=== PATIENT | female | born 1995 | race African-American/Black ===

== ENCOUNTER 2017-03-17 06:23 | Inpatient (IN) ==
[2017-03-17] MEDS ORDERED: CITRIC ACID/SODIUM CITRATE 30 ML UDCUP PO ONE (07:07)
[2017-03-17] MEDS ORDERED: FAMOTIDINE 20 MG/2 ML VIAL IV ONE (07:07)
[2017-03-17] MEDS ORDERED: ceFAZolin 2,000 MG in PREMIX 1 EACH IV ONE (07:07)
[2017-03-17] MEDS: LACTATED RINGERS 1,000 ML IV SCH ×2 (07:10→08:01)
[2017-03-17 07:53] LABS: Basophils % 0.1 % (0.0-0.8); Eosinophils # 0.1 10*3/uL (0.0-0.87); Eosinophils % 0.8 % (0.00-10.9); Hematocrit 27.1 VOL% (35.7-47.0); Immature Granulocytes % 0.5 %; Immature Granulocytes Absolute 0.04 #; Lymphocytes # 1.7 10*3/uL (1.4-4.0); Lymphocytes % 22.2 % (21.3-54.2); Mean Corpuscular HGB Conc 29.5 GM/DL (32-36); Mean Corpuscular Hemoglobin 19 PG (27-34); Mean Corpuscular Volume 64.5 FL (87-102); Mean Platelet Volume 10.8 FL (9.6-12.0); Monocytes # 0.5 10*3/uL (0.11-0.8); Monocytes % 6.8 % (1.7-12.7); NRBC # 0.07 10*3/uL; Neutrophils # 5.4 10*3/uL (1.4-7.4); Neutrophils % 69.6 % (38.7-73.9); Platelet Count 219 T/CUMM (130-400); Red Cell Distribution Width 19.8 % (9.3-17.3); White Blood Count 7.8 T/CUMM (4-12)
[2017-03-17] MEDS ORDERED: OXYTOCIN 10 UNIT/ML VIAL ONE (07:58)
[2017-03-17 08:23] LABS: Albumin 2.6 G/DL (3.4-5.0); Bilirubin,Total 0.4 MG/DL (0.2-1.0); Calcium 8.6 MG/DL (8.5-10.1); Osmolality,Calculated 271.5 MOS/KG (273-304); Total Protein 6.3 G/DL (6.4-8.3)
[2017-03-17] MEDS ORDERED: OXYTOCIN 10 UNIT/ML VIAL IM ONE (09:00)
[2017-03-17] MEDS ORDERED: OXYTOCIN/LR 30 UNIT/1,000 ML BAG IV ONE (09:00)
[2017-03-17 13:55] LABS: Cord Arterial Blood HCO3 17.8 MMOL/L
[2017-03-17 13:58] LABS: Cord Venous Blood HCO3 20.1 MMOL/L; Cord Venous Blood PCO2 44.6 MMHG; Cord Venous Blood PO2 20.4
[2017-03-17 14:00] LABS: Apearance,Urine CLEAR (Clear); Bacteria,Urine Occasional /HPF (Few); Bilirubin,Urine Negative (Negative); Blood, Urine Negative (Negative); Glucose,Urine (UA) Negative (Negative); Ketones,Urine Negative (Negative); Nitrite,Urine Negative (Negative); Protein,Urine Negative; RBC,Urine 1 /HPF (0-4); Urine Color Straw (Yellow); Urine Specific Gravity 1.005 (1.001-1.035); Urine Urobilinogen < 2.0 EU/DL (0.2-1.0); WBC,Urine <1 /HPF (0-6)
[2017-03-17] MEDS ORDERED: diphenhydrAMINE 50 MG/1 ML VIAL IV PRN (14:00)
[2017-03-17] MEDS ORDERED: MORPHINE 10 MG/10 ML VIAL ONE (14:30)
[2017-03-17] MEDS ORDERED: ONDANSETRON 4 MG/2 ML VIAL ONE (14:35)
[2017-03-17] MEDS ORDERED: GLYCOPYRROLATE 0.4 MG/2 ML VIAL ONE (14:36)
[2017-03-17] MEDS ORDERED: LACTATED RINGERS 1,000 ML IV ONE (14:36)
[2017-03-17] MEDS ORDERED: diphenhydrAMINE 50 MG/1 ML VIAL ONE (14:57)
[2017-03-17] MEDS ORDERED: ONDANSETRON 4 MG/2 ML VIAL IV PRN ×2 (15:37→16:09)
[2017-03-17] MEDS ORDERED: HYDROmorphone 2 MG/1 ML VIAL IV PRN (15:37)
[2017-03-17] MEDS ORDERED: hydrOXYzine HCL 25 MG/1 ML VIAL IM PRN (15:37)
[2017-03-17] MEDS ORDERED: PROMETHAZINE 25 MG/1 ML VIAL IM ONE (15:38)
[2017-03-17] MEDS ORDERED: RHO(D) IMMUNE GLOBULIN 300 MCG SYRINGE IM ONE (16:09)
[2017-03-17] MEDS ORDERED: LACTATED RINGERS 1,000 ML IV SCH (16:09)
[2017-03-17] MEDS ORDERED: OXYTOCIN/LR 20 UNIT/1,000 ML BAG IV ONE (16:09)
[2017-03-17] MEDS ORDERED: ACETAMINOPHEN 325 MG TABLET PO PRN (16:09)
[2017-03-17] MEDS ORDERED: DEXAMETHASONE 4 MG/1 ML VIAL IV ONE (16:15)
[2017-03-17] MEDS ORDERED: MEPERIDINE 50 MG/1 ML VIAL IV PRN (16:39)
[2017-03-17] MEDS ORDERED: LORazepam 2 MG/1 ML VIAL IV PRN ×2 (16:40)
[2017-03-17] MEDS: hydrOXYzine HCL 25 MG TABLET PO PRN (16:46)
[2017-03-17] MEDS: ceFAZolin 1,000 MG in SYRINGE 1 EACH IV SCH (21:29)
[2017-03-17] MEDS: DOCUSATE SODIUM 100 MG CAPSULE PO SCH (21:35)
[2017-03-18] MEDS: ceFAZolin 1,000 MG in SYRINGE 1 EACH IV SCH (05:58)
[2017-03-18 06:37] LABS: Basophils % 0.2 % (0.0-0.8); Eosinophils % 0.1 % (0.00-10.9); Hematocrit 25.7 VOL% (35.7-47.0); Hemoglobin 7.7 GM/DL (12.0-16.0); Immature Granulocytes % 0.3 %; Immature Granulocytes Absolute 0.03 #; Lymphocytes # 1.6 10*3/uL (1.4-4.0); Lymphocytes % 13.6 % (21.3-54.2); Mean Corpuscular Hemoglobin 19 PG (27-34); Mean Corpuscular Volume 63.6 FL (87-102); Mean Platelet Volume 10.6 FL (9.6-12.0); Monocytes # 0.8 10*3/uL (0.11-0.8); Monocytes % 6.7 % (1.7-12.7); NRBC # 0.06 10*3/uL; Neutrophils # 9.4 10*3/uL (1.4-7.4); Neutrophils % 79.1 % (38.7-73.9); Platelet Count 193 T/CUMM (130-400); Red Blood Count 4.04 MC/CUMM (3.8-5.5); Red Cell Distribution Width 19.6 % (9.3-17.3); White Blood Count 11.9 T/CUMM (4-12)
[2017-03-18 07:02] LABS: Giant Platelets Few; Hypochromasia 1+; Microcytosis Slight; Ovalocytes Slight; Platelet Estimate Normal
[2017-03-18] MEDS: MAGNESIUM HYDROXIDE SUSP 30 ML UDCUP PO PRN ×2 (08:13→23:28)
[2017-03-18] MEDS: MULTIVITAMIN (PRENATAL) TABLET PO SCH (08:13)
[2017-03-18] MEDS: DOCUSATE SODIUM 100 MG CAPSULE PO SCH ×2 (08:14→20:26)
[2017-03-18] MEDS: SIMETHICONE CHEW 80 MG TABLET PO PRN ×2 (08:14→23:28)
[2017-03-18] MEDS: hydrOXYzine HCL 25 MG TABLET PO PRN ×2 (10:22→20:26)
[2017-03-18] MEDS: FLUCONAZOLE 150 MG TABLET PO SCH (10:23)
[2017-03-18] MEDS ORDERED: oxyCODONE/ACETAMINOPHEN 5-325 MG TABLET PO PRN (10:36)
[2017-03-18] MEDS: IBUPROFEN 800 MG TABLET PO PRN (12:46)
[2017-03-18] MEDS ORDERED: SODIUM CHLORIDE 0.9% 1,000 ML IV PRN (13:15)
[2017-03-18] MEDS: oxyCODONE/ACETAMINOPHEN 5-325 MG TABLET PO PRN (18:24)
[2017-03-18 19:54] LABS: Hematocrit 28.1 VOL% (35.7-47.0); Hemoglobin 8.9 GM/DL (12.0-16.0)
[2017-03-18] MEDS: FUROSEMIDE 40 MG/4 ML VIAL IV SCH (20:26)
[2017-03-19] MEDS: oxyCODONE/ACETAMINOPHEN 5-325 MG TABLET PO PRN ×4 (01:57→22:01)
[2017-03-19] MEDS: FUROSEMIDE 40 MG/4 ML VIAL IV SCH (03:30)
[2017-03-19 06:02] LABS: Basophils % 0.1 % (0.0-0.8); Eosinophils # 0.2 10*3/uL (0.0-0.87); Eosinophils % 1.5 % (0.00-10.9); Hematocrit 34.1 VOL% (35.7-47.0); Hemoglobin 10.3 GM/DL (12.0-16.0); Immature Granulocytes % 0.4 %; Immature Granulocytes Absolute 0.07 #; Lymphocytes # 2.2 10*3/uL (1.4-4.0); Lymphocytes % 13.8 % (21.3-54.2); Mean Corpuscular HGB Conc 30.2 GM/DL (32-36); Mean Corpuscular Hemoglobin 21 PG (27-34); Mean Corpuscular Volume 68.6 FL (87-102); Mean Platelet Volume 10.6 FL (9.6-12.0); Monocytes # 1.1 10*3/uL (0.11-0.8); Monocytes % 6.7 % (1.7-12.7); NRBC # 0.11 10*3/uL; Neutrophils # 12.3 10*3/uL (1.4-7.4); Neutrophils % 77.5 % (38.7-73.9); Platelet Count 242 T/CUMM (130-400); Red Blood Count 4.97 MC/CUMM (3.8-5.5); Red Cell Distribution Width 23.7 % (9.3-17.3); White Blood Count 15.9 T/CUMM (4-12)
[2017-03-19 06:30] LABS: Acanthocytes Few; Hypochromasia 2+; Macrocytosis 1+; Polychromasia Slight; Target Cells Slight
[2017-03-19] MEDS: DOCUSATE SODIUM 100 MG CAPSULE PO SCH ×2 (07:33→20:32)
[2017-03-19] MEDS: MULTIVITAMIN (PRENATAL) TABLET PO SCH (07:33)
[2017-03-19] MEDS: FLUCONAZOLE 150 MG TABLET PO SCH (07:33)
[2017-03-19] MEDS: MAGNESIUM HYDROXIDE SUSP 30 ML UDCUP PO PRN ×2 (08:51→20:32)
[2017-03-19] MEDS: SIMETHICONE CHEW 80 MG TABLET PO PRN ×2 (08:51→20:32)
[2017-03-19] MEDS: IBUPROFEN 800 MG TABLET PO PRN ×2 (11:41→23:45)
[2017-03-19] MEDS ORDERED: BISACODYL 10 MG SUPP RECTAL PRN (12:58)
[2017-03-19] MEDS ORDERED: METOCLOPRAMIDE 10 MG TABLET PO PRN (16:13)
[2017-03-19] MEDS ORDERED: MAGNESIUM CITRATE 300 ML BOTTLE PO ONE (16:13)
[2017-03-20] MEDS: MULTIVITAMIN (PRENATAL) TABLET PO SCH (08:45)
[2017-03-20] MEDS: DOCUSATE SODIUM 100 MG CAPSULE PO SCH (08:52)
[2017-03-20 08:56] VITALS: BP 147/94
== END 2017-03-20 11:45 | disposition home or self-care (01) | DRG 540 ==
LOC: N.LDOUT 06:23 → N.LD 06:28 → N.OB 15:50
PROVIDERS: ADMIT Obstetrics & Gynecology; ATTEND Obstetrics & Gynecology
PROC: LDCSECT (ICD-10-PCS; 2017-03-17 09:00)

== ENCOUNTER 2019-07-29 13:39 | Observation (INO) ==
[2019-07-29] MEDS ORDERED: SODIUM CHLORIDE 0.9% 500 ML IV STA (14:22)
[2019-07-29 14:35] LABS: Basophils % 0.6 % (0.0-0.8); Eosinophils # 0.1 10*3/uL (0.0-0.87); Eosinophils % 1.5 % (0.00-10.9); Hematocrit 21.9 VOL% (35.7-47.0); Immature Granulocytes % 0.4 %; Immature Granulocytes Absolute 0.03 #; Lymphocytes # 1.8 10*3/uL (1.4-4.0); Lymphocytes % 26.5 % (21.3-54.2); Mean Corpuscular HGB Conc 28.3 GM/DL (32-36); Mean Corpuscular Volume 70.9 FL (87-102); Mean Platelet Volume 9.7 FL (9.6-12.0); Monocytes % 6.3 % (1.7-12.7); NRBC # 0.07 10*3/uL; Neutrophils % 64.7 % (38.7-73.9); Platelet Count 330 T/CUMM (130-400); Red Blood Count 3.09 MC/CUMM (3.8-5.5); Red Cell Distribution Width 19.9 % (9.3-17.3); White Blood Count 6.8 T/CUMM (4-12)
[2019-07-29 14:47] LABS: Hemoglobin 6.2 GM/DL (12.0-16.0)
[2019-07-29 14:49] LABS: Alanine Aminotransferase < 9 U/L (13-56); Albumin 3.4 G/DL (3.4-5.0); Alkaline Phosphatase 91 U/L (45-117); Aspartate Amino Transferase 10 U/L (0-37); Bilirubin,Total < 0.39 MG/DL (0.2-1.0); Blood Urea Nitrogen 6 MG/DL (7-18); Calcium 9.1 MG/DL (8.5-10.1); Estimated Glom Filtration Rate 110 ML/MIN; Glucose 107 MG/DL (74-106); Osmolality,Calculated 267.1 MOS/KG (273-304); Total Protein 7.9 G/DL (6.4-8.3)
[2019-07-29 15:10] LABS: Eosinophils 1 % (0-10); Hypochromasia 2+; Lymphocytes 25 % (20-55); Nucleated Red Blood Cells 2 (0-5); Segmented Neutrophils 70 % (50-85); Total Cells Counted 100
[2019-07-29 15:11] LABS: Macrocytosis 2+; Microcytosis 2+; Platelet Estimate Adequate; Polychromasia 1+
[2019-07-29] MEDS ORDERED: IBUPROFEN 800 MG TABLET PO PRN (15:54)
[2019-07-29] MEDS ORDERED: ACETAMINOPHEN 325 MG TABLET PO PRN (15:54)
[2019-07-29] MEDS ORDERED: BISACODYL 10 MG SUPP RECTAL PRN (15:54)
[2019-07-29] MEDS ORDERED: ONDANSETRON 4 MG/2 ML VIAL IV PRN (15:54)
[2019-07-29] MEDS ORDERED: MAGNESIUM HYDROXIDE SUSP 30 ML UDCUP PO PRN (15:54)
[2019-07-29] MEDS ORDERED: SODIUM CHLORIDE 0.9% 1,000 ML IV PRN (15:56)
[2019-07-29] MEDS ORDERED: DOCUSATE SODIUM 100 MG CAPSULE PO SCH (21:00)
[2019-07-30 07:36] LABS: Hemoglobin 8.7 GM/DL (12.0-16.0)
[2019-07-30 10:36] VITALS: BP 118/74
== END 2019-07-30 09:00 | disposition home or self-care (01) ==
LOC: N.ED 13:39 → N.EDINP 13:39 → N.OB 16:34
PROVIDERS: ADMIT Obstetrics & Gynecology; ATTEND Obstetrics & Gynecology